=== PATIENT | female | born 1965 | race Caucasian/White ===

== ENCOUNTER 2017-06-15 16:37 | Inpatient (IN) | payer OTHER, MEDICARE ==
[~2017-06-15] VITALS: Ht 172.7 cm; Wt 115.4 kg
[~2017-06-15 16:37] MED LIST: ACET325 PO; ALBU90OI INH; ALLO100 PO; ALLO300 PO; AMITRIPTYLINE; AMOCLA875 PO; AMRIX; BELSOMRA20 MG PO; BUDE6HFA INH; BUME1 PO; BUME2 PO; CEFP500 PO; CEPH500 PO; CLON1 PO; COLCRYS0.6 MG PO; CRUTCH4 XX; CYCL10 PO; Carisoprodol350 MG PO; DULO60; DULO60 PO; Esgic Tablet1 EACH PO; FROVA; GABA300 PO; Hydrocodone Bt1 EACH PO; LEVFLO500 PO; LEVO2 PO; LYRICA; Lyrica150 MG PO; MELO7.5 PO; MELOXICAM; METF500 PO; METFORMIN; METH10 PO; METO2.5 PO; METO5 PO; MORP30ER PO; NODOLOR CAPSUL1 EACH PO; NOVOLOG MIX SC; OPANA ER15 MG PO; OXYACE5T PO; OXYC5; OXYC5 PO; OXYMORPHONE; OXYMORPHONE HCL30 MG PO; POTCHL20ER PO; PRED10; PRED10 PO; PREG150 PO; PRIM250 PO; PRIM50 PO; Percocet 5-3251 EACH PO; RIZATRIPTAN10 M1 PO; RXCLIN PO; SPIR25 PO; SULTRIDS PO; TIZANIDINE HCL4 MG PO; TOPIRAMATE; TORSE20 PO; TRAM50 PO; ZALE5 PO; ZOLP10 PO; ZOLP12.5 PO; Zanaflex4 M1 PO; Zanaflex4 MG PO; midrin
[2017-06-15 17:08] LABS: Source, Urine Clean Catch
[2017-06-15 17:12] LABS: BASOPHILS ABSOLUTE AUTO 0.05 K/mm3 (0.00-0.23); BASOPHILS PERCENT AUTO 0 % (0-2); Bilirubin, Urine Neg (Neg); Blood, Urine Neg (Neg); EOSINOPHILS ABSOLUTE AUTO 0.01 K/mm3 (0.00-0.68); EOSINOPHILS PERCENT AUTO 0 % (0-6); Glucose Qualitative, Urine 4+ (Neg); Hemoglobin 13.7 g/dL (11.5-16.0); IMMATURE GRAN PERCENT AUTO 1 % (0-1); Ketones, Urine Neg (Neg); LYMPHOCYTES ABSOLUTE AUTO 2.09 K/mm3 (0.84-5.20); LYMPHOCYTES PERCENT AUTO 13 % (21-46); Leukocyte Esterase, Urine Neg (Neg); MONOCYTES ABSOLUTE AUTO 0.67 K/mm3 (0.16-1.47); MONOCYTES PERCENT AUTO 4 % (4-13); Mean Corpuscular HGB 29.6 pg (26.0-34.0); Mean Corpuscular HGB Conc 33.4 g/dL (31.5-36.5); Mean Corpuscular Volume 89 fL (80-100); Mean Platelet Volume 9.9 fL (9.1-12.4); NEUTROPHILS ABSOLUTE AUTO 13.12 K/mm3 (1.96-9.15); NEUTROPHILS PERCENT AUTO 82 % (41-73); Nitrite, Urine Neg (Neg); Platelet Count 427 K/mm3 (150-400); Protein, Urine 3+ (Neg); RDW Coefficient Variation 13.2 % (11.7-14.2); RDW Standard Deviation 42.7 fL (35.1-46.3); Red Blood Cell Count 4.63 M/mm3 (3.80-5.20); Urobilinogen, Urine NORM (Normal); White Blood Cell Count 16.04 K/mm3 (4.00-11.30)
[2017-06-15 17:20] LABS: Appearance, Urine Clear (Clear); Color, Urine Yellow (P-Yellow)
[2017-06-15 17:22] LABS: Bacteria Few /hpf; Red Blood Cells, Urine 0-2 /hpf (0-2); Squamous Epithelial Cells Few /hpf (Few); White Blood Cells, Urine 0-2 /hpf (0-5)
[2017-06-15 17:29] LABS: Alanine Aminotransfer (ALT/SGP 18 U/L (12-78); Albumin, Blood 4.1 g/dL (3.4-5.0); Albumin/Globulin Ratio 1.1 (0.8-1.8); Alk Phos 71 U/L (50-136); Anion Gap 11 mmol/L (6-16); Aspartate Aminotrans (AST/SGOT 14 U/L (12-37); Bilirubin, Total 0.4 mg/dL (0.1-1.0); Blood Urea Nitrogen 14 mg/dL (8-24); Bun/Creatinine Ratio 24.1 (12.0-20.0); CO2, Blood 27 mmol/L (21-32); Calcium, Blood 9.6 mg/dL (8.5-10.1); Chloride, Blood 94 mmol/L (98-108); Creatinine, Blood 0.58 mg/dL (0.40-1.00); Globulin, Blood 3.9 g/dL (2.2-4.0); Glomerular Filtration Rate >60 (60-); Glucose, Blood 253 mg/dL (70-99); Potassium, Blood 3.7 mmol/L (3.5-5.5); Sodium, Blood 132 mmol/L (136-145)
[2017-06-16 04:08] LABS: BASOPHILS ABSOLUTE AUTO 0.03 K/mm3 (0.00-0.23); BASOPHILS PERCENT AUTO 0 % (0-2); EOSINOPHILS ABSOLUTE AUTO 0.14 K/mm3 (0.00-0.68); EOSINOPHILS PERCENT AUTO 1 % (0-6); Hematocrit 35.8 % (33.0-51.0); IMMATURE GRAN ABSOLUTE AUTO 0.05 K/mm3 (0.00-0.10); IMMATURE GRAN PERCENT AUTO 0 % (0-1); LYMPHOCYTES PERCENT AUTO 30 % (21-46); MONOCYTES PERCENT AUTO 8 % (4-13); Mean Corpuscular HGB 29.6 pg (26.0-34.0); Mean Corpuscular HGB Conc 33.5 g/dL (31.5-36.5); Mean Corpuscular Volume 88 fL (80-100); Mean Platelet Volume 9.9 fL (9.1-12.4); NEUTROPHILS ABSOLUTE AUTO 7.25 K/mm3 (1.96-9.15); NEUTROPHILS PERCENT AUTO 60 % (41-73); Platelet Count 352 K/mm3 (150-400); RDW Coefficient Variation 13.2 % (11.7-14.2); RDW Standard Deviation 42.1 fL (35.1-46.3); Red Blood Cell Count 4.06 M/mm3 (3.80-5.20); White Blood Cell Count 12.17 K/mm3 (4.00-11.30)
[2017-06-16 04:25] LABS: Anion Gap 6 mmol/L (6-16); Blood Urea Nitrogen 13 mg/dL (8-24); CO2, Blood 30 mmol/L (21-32); Calcium, Blood 8.9 mg/dL (8.5-10.1); Chloride, Blood 97 mmol/L (98-108); Cholesterol 202 mg/dL (50-200); Creatinine, Blood 0.59 mg/dL (0.40-1.00); Glomerular Filtration Rate >60 (60-); Glucose, Blood 160 mg/dL (70-99); Potassium, Blood 3.4 mmol/L (3.5-5.5); Sodium, Blood 133 mmol/L (136-145); Triglycerides 486 mg/dL (30-160)
[2017-06-16 10:34] LABS: Alanine Aminotransfer (ALT/SGP 17 U/L (12-78); Albumin, Blood 3.5 g/dL (3.4-5.0); Alk Phos 55 U/L (50-136); Aspartate Aminotrans (AST/SGOT 14 U/L (12-37); Bilirubin, Total 0.3 mg/dL (0.1-1.0); Globulin, Blood 3.4 g/dL (2.2-4.0); Total Protein, Blood 6.9 g/dL (6.4-8.2)
[2017-06-18 05:32] LABS: Anion Gap 8 mmol/L (6-16); Blood Urea Nitrogen 8 mg/dL (8-24); Bun/Creatinine Ratio 14.5 (12.0-20.0); CO2, Blood 25 mmol/L (21-32); Calcium, Blood 9.2 mg/dL (8.5-10.1); Chloride, Blood 100 mmol/L (98-108); Creatinine, Blood 0.55 mg/dL (0.40-1.00); Glomerular Filtration Rate >60 (60-); Glucose, Blood 240 mg/dL (70-99); Potassium, Blood 3.5 mmol/L (3.5-5.5); Sodium, Blood 133 mmol/L (136-145)
== END 2017-06-18 09:28 | disposition home or self-care (01) | DRG 440 ==
LOC: ER 16:37 → MEDS 16:38
PROVIDERS: Family Medicine; Internal Medicine
DX: K85.90 Acute pancreatitis without necrosis or infection, unspecified (principal); Z79.4 Long term (current) use of insulin; G89.29 Other chronic pain; M10.9 Gout, unspecified; E86.0 Dehydration; M79.7 Fibromyalgia; E11.40 Type 2 diabetes mellitus with diabetic neuropathy, unspecified; Z68.38 Body mass index [BMI] 38.0-38.9, adult; E66.01 Morbid (severe) obesity due to excess calories; R51 Headache; R16.0 Hepatomegaly, not elsewhere classified; K80.20 Calculus of gallbladder without cholecystitis without obstruction
CPT/HCPCS: 36415; 76705; 80048; 80053; 81001; 82465; 82947; 83690; 84478; 85025; 94640; 94760; 96374; 96375; 96376; 99285; C9113; J2405; J3010; J7042; J7120

== ENCOUNTER 2017-06-28 22:08 | Inpatient (IN) | payer OTHER, MEDICARE ==
[~2017-06-28] VITALS: Ht 172.7 cm; Wt 108.0 kg
[~2017-06-28 22:08] MED LIST changes: -METF500 PO; +METF500C PO
[2017-06-28 23:04] LABS: BASOPHILS ABSOLUTE AUTO 0.07 K/mm3 (0.00-0.23); BASOPHILS PERCENT AUTO 0 % (0-2); EOSINOPHILS ABSOLUTE AUTO 0.13 K/mm3 (0.00-0.68); EOSINOPHILS PERCENT AUTO 1 % (0-6); Hematocrit 36.9 % (33.0-51.0); Hemoglobin 12.1 g/dL (11.5-16.0); IMMATURE GRAN PERCENT AUTO 1 % (0-1); LYMPHOCYTES ABSOLUTE AUTO 2.42 K/mm3 (0.84-5.20); LYMPHOCYTES PERCENT AUTO 14 % (21-46); MONOCYTES ABSOLUTE AUTO 1.21 K/mm3 (0.16-1.47); MONOCYTES PERCENT AUTO 7 % (4-13); Mean Corpuscular HGB 29.1 pg (26.0-34.0); Mean Corpuscular HGB Conc 32.8 g/dL (31.5-36.5); Mean Corpuscular Volume 89 fL (80-100); Mean Platelet Volume 10.2 fL (9.1-12.4); NEUTROPHILS ABSOLUTE AUTO 13.69 K/mm3 (1.96-9.15); NEUTROPHILS PERCENT AUTO 78 % (41-73); Platelet Count 419 K/mm3 (150-400); RDW Coefficient Variation 12.7 % (11.7-14.2); RDW Standard Deviation 40.9 fL (35.1-46.3); Red Blood Cell Count 4.16 M/mm3 (3.80-5.20); White Blood Cell Count 17.62 K/mm3 (4.00-11.30)
[2017-06-28 23:25] LABS: Alanine Aminotransfer (ALT/SGP 14 U/L (12-78); Albumin, Blood 3.2 g/dL (3.4-5.0); Albumin/Globulin Ratio 0.7 (0.8-1.8); Alk Phos 70 U/L (50-136); Anion Gap 10 mmol/L (6-16); Aspartate Aminotrans (AST/SGOT 15 U/L (12-37); Bilirubin, Total 0.3 mg/dL (0.1-1.0); Blood Urea Nitrogen 7 mg/dL (8-24); CO2, Blood 28 mmol/L (21-32); Calcium, Blood 9.4 mg/dL (8.5-10.1); Chloride, Blood 97 mmol/L (98-108); Creatinine, Blood 0.63 mg/dL (0.40-1.00); Globulin, Blood 4.9 g/dL (2.2-4.0); Glomerular Filtration Rate >60 (60-); Glucose, Blood 222 mg/dL (70-99); Sodium, Blood 135 mmol/L (136-145); Total Protein, Blood 8.1 g/dL (6.4-8.2); Troponin I <0.015 ng/mL (0.000-0.040)
[2017-06-28] MEDS ORDERED: ZOLP5 PO (23:39)
[2017-06-29] MEDS ORDERED: Trilipix135 MG PO (01:14)
[2017-06-29] MEDS ORDERED: RIZATRIPTAN10 M1 PO (01:17)
[2017-06-29] MEDS ORDERED: ALLO300 PO (04:20)
[2017-06-29 05:00] LABS: BASOPHILS ABSOLUTE AUTO 0.04 K/mm3 (0.00-0.23); BASOPHILS PERCENT AUTO 0 % (0-2); EOSINOPHILS ABSOLUTE AUTO 0.04 K/mm3 (0.00-0.68); EOSINOPHILS PERCENT AUTO 0 % (0-6); Hematocrit 33.6 % (33.0-51.0); Hemoglobin 11.1 g/dL (11.5-16.0); IMMATURE GRAN ABSOLUTE AUTO 0.07 K/mm3 (0.00-0.10); IMMATURE GRAN PERCENT AUTO 0 % (0-1); LYMPHOCYTES PERCENT AUTO 12 % (21-46); MONOCYTES ABSOLUTE AUTO 1.23 K/mm3 (0.16-1.47); MONOCYTES PERCENT AUTO 8 % (4-13); Mean Corpuscular HGB 29.4 pg (26.0-34.0); Mean Corpuscular Volume 89 fL (80-100); Mean Platelet Volume 10.1 fL (9.1-12.4); NEUTROPHILS ABSOLUTE AUTO 12.44 K/mm3 (1.96-9.15); NEUTROPHILS PERCENT AUTO 79 % (41-73); Platelet Count 392 K/mm3 (150-400); RDW Coefficient Variation 12.6 % (11.7-14.2); RDW Standard Deviation 41.1 fL (35.1-46.3); Red Blood Cell Count 3.77 M/mm3 (3.80-5.20); White Blood Cell Count 15.72 K/mm3 (4.00-11.30)
[2017-06-30 05:09] LABS: BASOPHILS ABSOLUTE AUTO 0.03 K/mm3 (0.00-0.23); BASOPHILS PERCENT AUTO 0 % (0-2); EOSINOPHILS ABSOLUTE AUTO 0.01 K/mm3 (0.00-0.68); EOSINOPHILS PERCENT AUTO 0 % (0-6); Hematocrit 31.6 % (33.0-51.0); Hemoglobin 10.4 g/dL (11.5-16.0); IMMATURE GRAN ABSOLUTE AUTO 0.09 K/mm3 (0.00-0.10); IMMATURE GRAN PERCENT AUTO 1 % (0-1); LYMPHOCYTES ABSOLUTE AUTO 1.67 K/mm3 (0.84-5.20); LYMPHOCYTES PERCENT AUTO 12 % (21-46); MONOCYTES ABSOLUTE AUTO 0.87 K/mm3 (0.16-1.47); MONOCYTES PERCENT AUTO 6 % (4-13); Mean Corpuscular HGB 28.9 pg (26.0-34.0); Mean Corpuscular HGB Conc 32.9 g/dL (31.5-36.5); Mean Corpuscular Volume 88 fL (80-100); Mean Platelet Volume 10.4 fL (9.1-12.4); NEUTROPHILS ABSOLUTE AUTO 10.98 K/mm3 (1.96-9.15); NEUTROPHILS PERCENT AUTO 80 % (41-73); Platelet Count 377 K/mm3 (150-400); RDW Coefficient Variation 12.6 % (11.7-14.2); RDW Standard Deviation 40.6 fL (35.1-46.3); White Blood Cell Count 13.65 K/mm3 (4.00-11.30)
[2017-06-30 05:26] LABS: Anion Gap 12 mmol/L (6-16); Blood Urea Nitrogen 10 mg/dL (8-24); Bun/Creatinine Ratio 16.5 (12.0-20.0); CO2, Blood 25 mmol/L (21-32); Chloride, Blood 97 mmol/L (98-108); Creatinine, Blood 0.61 mg/dL (0.40-1.00); Glomerular Filtration Rate >60 (60-); Glucose, Blood 228 mg/dL (70-99); Potassium, Blood 3.8 mmol/L (3.5-5.5); Sodium, Blood 134 mmol/L (136-145)
[2017-07-01 05:19] LABS: BASOPHILS ABSOLUTE AUTO 0.04 K/mm3 (0.00-0.23); BASOPHILS PERCENT AUTO 0 % (0-2); EOSINOPHILS ABSOLUTE AUTO 0.05 K/mm3 (0.00-0.68); EOSINOPHILS PERCENT AUTO 0 % (0-6); Hematocrit 32.6 % (33.0-51.0); Hemoglobin 10.7 g/dL (11.5-16.0); IMMATURE GRAN ABSOLUTE AUTO 0.07 K/mm3 (0.00-0.10); IMMATURE GRAN PERCENT AUTO 1 % (0-1); LYMPHOCYTES ABSOLUTE AUTO 2.41 K/mm3 (0.84-5.20); LYMPHOCYTES PERCENT AUTO 21 % (21-46); MONOCYTES ABSOLUTE AUTO 0.92 K/mm3 (0.16-1.47); MONOCYTES PERCENT AUTO 8 % (4-13); Mean Corpuscular HGB Conc 32.8 g/dL (31.5-36.5); Mean Corpuscular Volume 88 fL (80-100); Mean Platelet Volume 9.9 fL (9.1-12.4); NEUTROPHILS ABSOLUTE AUTO 8.11 K/mm3 (1.96-9.15); NEUTROPHILS PERCENT AUTO 70 % (41-73); Platelet Count 377 K/mm3 (150-400); RDW Coefficient Variation 12.6 % (11.7-14.2); Red Blood Cell Count 3.69 M/mm3 (3.80-5.20)
[2017-07-01 05:38] LABS: Anion Gap 9 mmol/L (6-16); Blood Urea Nitrogen 14 mg/dL (8-24); Bun/Creatinine Ratio 25.3 (12.0-20.0); CO2, Blood 28 mmol/L (21-32); Calcium, Blood 9.4 mg/dL (8.5-10.1); Chloride, Blood 98 mmol/L (98-108); Creatinine, Blood 0.55 mg/dL (0.40-1.00); Glomerular Filtration Rate >60 (60-); Glucose, Blood 220 mg/dL (70-99); Potassium, Blood 3.9 mmol/L (3.5-5.5); Sodium, Blood 135 mmol/L (136-145)
[2017-07-02 05:50] LABS: Anion Gap 10 mmol/L (6-16); Blood Urea Nitrogen 16 mg/dL (8-24); Bun/Creatinine Ratio 26.8 (12.0-20.0); CO2, Blood 30 mmol/L (21-32); Calcium, Blood 9.6 mg/dL (8.5-10.1); Chloride, Blood 93 mmol/L (98-108); Glomerular Filtration Rate >60 (60-); Glucose, Blood 223 mg/dL (70-99); Potassium, Blood 4.1 mmol/L (3.5-5.5); Sodium, Blood 133 mmol/L (136-145)
[2017-07-02] MEDS ORDERED: CODEINE-GUAIFE120 ML PO (12:47)
[2017-07-02] MEDS ORDERED: NOVOLOG 70/30 SC (12:57)
[2017-07-02] MEDS ORDERED: CEFP500 PO (12:58)
[2017-07-02] MEDS ORDERED: INSU100I6 SC (12:58)
[2017-07-02] MEDS ORDERED: PRED10 PO (13:00)
[2017-07-02] MEDS ORDERED: Metformin HCl500 MG PO (13:07)
== END 2017-07-02 14:00 | disposition home or self-care (01) | DRG 871 ==
LOC: ER 22:08 → MEDS 06-29 00:08
PROVIDERS: Emergency Medicine; Family Medicine; Hospitalist
DX: A41.9 Sepsis, unspecified organism (principal); J96.01 Acute respiratory failure with hypoxia; K85.10 Biliary acute pancreatitis without necrosis or infection; J84.9 Interstitial pulmonary disease, unspecified; J44.9 Chronic obstructive pulmonary disease, unspecified; E11.9 Type 2 diabetes mellitus without complications; F17.210 Nicotine dependence, cigarettes, uncomplicated; E66.9 Obesity, unspecified
CPT/HCPCS: 36415; 71046; 80048; 80053; 82947; 83605; 83690; 83880; 84484; 85025; 87040; 87070; 87205; 87493; 93005; 93010; 94640; 94760; 94761; 96365; 96375; 99285; J1956; J2405; J2543; J2930; J3010; J7030

== ENCOUNTER 2017-08-21 06:39 | Day surgery (SDC) | payer OTHER, MEDICARE ==
[~2017-08-21] VITALS: Ht 170.2 cm; Wt 116.1 kg
[~2017-08-21 06:39] MED LIST changes: +CODEINE-GUAIFE120 ML PO; +INSU100I6 SC; +Metformin HCl500 MG PO; +NOVOLOG 70/30 SC; +Trilipix135 MG PO; +VICOPROFEN PO; +ZOLP5 PO
== END 2017-08-21 23:16 | disposition home or self-care (01) ==
LOC: ORSCMMR 06:39 → ORD 08:00 → ORSCMMR 23:16
PROVIDERS: Surgery
PROC: 0FT44ZZ Resection of Gallbladder, Percutaneous Endoscopic Approach (ICD-10-PCS; principal; 2017-08-21 08:00)
PROC: BF031ZZ Plain Radiography of Gallbladder and Bile Ducts using Low Osmolar Contrast (ICD-10-PCS; principal; 2017-08-21 08:00)
DX: K80.20 Calculus of gallbladder without cholecystitis without obstruction (principal); I10 Essential (primary) hypertension; E11.9 Type 2 diabetes mellitus without complications; J45.909 Unspecified asthma, uncomplicated; E66.01 Morbid (severe) obesity due to excess calories; Z68.41 Body mass index [BMI] 40.0-44.9, adult; F17.210 Nicotine dependence, cigarettes, uncomplicated; Z79.4 Long term (current) use of insulin; Z79.899 Other long term (current) drug therapy
CPT/HCPCS: 74300; 82947; 88304; C1729; J0690; J1100; J1885; J2001; J2250; J2405; J2710; J3010; J7030; J7120

== ENCOUNTER 2018-03-06 22:22 | Observation (INO) | payer OTHER, MEDICARE ==
[~2018-03-06] VITALS: Ht 172.7 cm; Wt 94.4 kg
[~2018-03-06 22:22] MED LIST changes: +HUMULIN 70100 UNIT/2 SC; +HYDPAM25 PO; +HYDR-86 PO; -INSU100I6 SC; +PRED20 PO
[2018-03-06 23:01] LABS: BASOPHILS ABSOLUTE AUTO 0.03 K/mm3 (0.00-0.23); BASOPHILS PERCENT AUTO 0 % (0-2); EOSINOPHILS ABSOLUTE AUTO 0.07 K/mm3 (0.00-0.68); EOSINOPHILS PERCENT AUTO 1 % (0-6); Hematocrit 38.7 % (33.0-51.0); Hemoglobin 12.6 g/dL (11.5-16.0); IMMATURE GRAN ABSOLUTE AUTO 0.07 K/mm3 (0.00-0.10); IMMATURE GRAN PERCENT AUTO 1 % (0-1); LYMPHOCYTES ABSOLUTE AUTO 2.89 K/mm3 (0.84-5.20); LYMPHOCYTES PERCENT AUTO 21 % (21-46); MONOCYTES ABSOLUTE AUTO 0.63 K/mm3 (0.16-1.47); MONOCYTES PERCENT AUTO 5 % (4-13); Mean Corpuscular HGB 29.6 pg (26.0-34.0); Mean Corpuscular HGB Conc 32.6 g/dL (31.5-36.5); Mean Corpuscular Volume 91 fL (80-100); Mean Platelet Volume 9.4 fL (9.1-12.4); NEUTROPHILS ABSOLUTE AUTO 9.85 K/mm3 (1.96-9.15); NEUTROPHILS PERCENT AUTO 73 % (41-73); Platelet Count 576 K/mm3 (150-400); RDW Coefficient Variation 14.4 % (11.7-14.2); RDW Standard Deviation 48.2 fL (35.1-46.3); Red Blood Cell Count 4.25 M/mm3 (3.80-5.20); White Blood Cell Count 13.54 K/mm3 (4.00-11.30)
[2018-03-06 23:25] LABS: Free Thyroxine 1.28 ng/dL (0.70-1.60); Troponin I <0.015 ng/mL (0.000-0.040)
[2018-03-06 23:29] LABS: Alanine Aminotransfer (ALT/SGP 51 U/L (12-78); Albumin/Globulin Ratio 0.8 (0.8-1.8); Alk Phos 149 U/L (50-136); Anion Gap 7 mmol/L (6-16); Aspartate Aminotrans (AST/SGOT 44 U/L (12-37); Bilirubin, Total 0.4 mg/dL (0.1-1.0); Blood Urea Nitrogen 13 mg/dL (8-24); Bun/Creatinine Ratio 23.2 (12.0-20.0); CO2, Blood 29 mmol/L (21-32); Calcium, Blood 8.5 mg/dL (8.5-10.1); Chloride, Blood 101 mmol/L (98-108); Creatinine, Blood 0.56 mg/dL (0.40-1.00); Glomerular Filtration Rate >60 (60-); Glucose, Blood 41 mg/dL (70-99); Potassium, Blood 3.8 mmol/L (3.5-5.5); Sodium, Blood 137 mmol/L (136-145); Thyroid Stimulating Hormone 0.602 uIU/mL (0.360-4.800); Triiodothyronine, Free 2.42 pg/mL (2.18-3.98)
[2018-03-07 01:12] LABS: Ethanol (Alcohol), Blood, Med <3 mg/dL; Salicylate 3.8 mg/dL (2.8-20.0)
[2018-03-07 01:18] LABS: Acetaminophen, Random <2.0 ug/mL (10.0-30.0)
--- NOTE | 2018-03-07 06:37 | NUR ---
PCU NOC SHIFT SUMMARY PATIENT ARRIVED FROM ER VERY LETHARGIC - TO ONLY AROUSABLE TO PAINFUL STIMULI. PATIENT TRANSFERED TO UNIT BED VIA SLIDER SHEET AND NURSES X4. GANG DRILL OPERATOR APPLIED AND VSS OBTAINED. PATIENT WILL FOLLOW SOME DIRECTIONS AND USES ONE WORD SENTENCES TO COMMUNICATE. PATIENT IS NONSENSICLE. L/S CLEAR. RESP E/U ON ROOM AIR. PATIENT REMAINED LETHARGIC T/O SHIFT AND SLEPT T/O SHIFT THUS FAR. CBGS DONE Q2 HOUR. NO ACUTE CHANGES NOTED T/O SHIFT.
--- NOTE | 2018-03-07 08:00 | NUR ---
PT UNRESPONSIVE EXCEPT TO PAIN. ANSWERS GARBLED AND INCOMPREHENSIBLE. HUSB AT BEDSIDE. STATES IS NOT HER NORM. THEY JUST MOVED TO HEW HOUSE. FOUND HER UNRESPONSIVE LAST [place]CHELL AT 6PM. CBG 40'S, O2 50'S PER HIS STATEMENT. HE CALLED AMBULANCE. GAVE HER HONEY UNDER TONGUE. SHE COMBATIVE AT THAT TIME. CONFUSED AND NOT FOLLOWING INSTRUCT. NOT HER BASELINE. RUNS HOUSEHOLD WELL. TAKES OWN MEDS. ETC. H/R REG, NO MURMER NOTED. PER TELE: NSR AT 79. LUNGS CLEAR, RESP EASY, UNLABORED. ON R.A. BT X4 LAST BM LST NITE IN ER. INCONT. BOWEL AND BLADDER. IN ATTENDS. BED CONFINED AT THIS TIMEM. BED IN LOW POSITIOIN,C ALL LITE IN REACH, BED ALARM ON FOR SAFETY
--- NOTE | 2018-03-07 11:00 | NUR ---
1100 TALKED TO PT. SHE AWAKE. ABLE TO TELL ME FIRST NAME. AGE 52. HUSB NAME FRANCOIS. NOT SURE WHERE IS. UNABLE TO TELL ME HER HOME LOCATION. REORIENTED. TOOK SIPS WATER. DID WELL. NOTIFIED.
--- NOTE | 2018-03-07 13:35 | NUR ---
CBG TRENDING UP. DR BROOKS. OKAY CHANGE ACHS AND MED S/S , HUMALOG QUICKPEN. CONTINUE IV D-5 1/2 NS
--- NOTE | 2018-03-07 15:30 | NUR ---
PT C/O ABD PAIN, CALLED DR BROOKS. NO NEW ORDERS. WARM PACKS OKAY PER
--- NOTE | 2018-03-07 18:46 | NUR ---
1300PT ABLE TO TELL ME HER NAME, ADAL NAME, FRANCOIS,. STATES 3 CHILDREN, GAVE ME TWO NAMES. ADAL LATER CONFIRMED WRONG. ABLE TO TELL ME SHE IN [place], NOT SURE WHERE WAS. REORIENTED. SHE IMPROVED. ABLE TO MOVE ARMS. TOUCH NOSE WITH FINGER TIPS WITH EFFORT. BOTH ARMS. ABLETO MOVE BOTH FEET AND LIFT EACH INDEPENDANTLY IN BED. SAMPLE CHECKER EQUAL AND WEAK. BED IN LOW POSITION,,CA LL LITE IN REACH, BED ALARM ON FOR SAFETY
--- NOTE | 2018-03-07 18:49 | NUR ---
1630 PT BED ALARM ON/ WENT TO ROOM. SHE SITTING ON EDGE OF BED, WITH LOOSE STOOL ON BED AND IN ATTENDS AND ALLOVER LOWER EXT. SHE UPSET. HAS HAD PAIN IN ABD. FEELS BETTER NOW IN ABD. CLEANED BED AND PT WITH AIDE ASST. PT AMBULATED 1 ASST TO BSC. HAD FURTHER BM AND URINE. BATHED PT . PT AMBULATED BACK TO BED, 1 ASST. MUCH CALMER AT THIS TIME. ABLE TO TELL NAME, HUSB, HER AGE, SHE STATES SHE IS SORRY FOR MESS. EXPLAINED IS OKAY AND EXPECTED WHEN SICK. NO OTHER CONCERNS AT THIS TIME. BED IN LOW POSITION,, CALL LITE IN REACH, BED ALARM ON FOR SAFETY.
--- NOTE | 2018-03-07 18:53 | NUR ---
PT HAS IMPROVED FROM THIS AM . NOTIFIED OF CURRENT CONDITION, ALERT ORIENTED TO SELF AND FAM. AGE. UNSURE OF CHILDREN NAMES. CITY. DID HAVE BM THIS AFT. AMBULATED TO BSC. DID WELL 1 ASST. STATES GETS DIARRHEA REGULARLY SINCE GALL BLADDER OUT THIS SPRING. SOME ACCIDENTS, INCONT. SOME NOT. VARIES., BUT ALWAYS VERY SOFT STOOLS. NO OTHER CONCERNA AT THIS TIME. BED IN LOW POSITION, CALL LITE IN REACH, BED ALARM ON FOR SAFETY
--- NOTE | 2018-03-07 19:13 | NUR ---
1800 CALLED. STATES CAN MOVE TO NS AT 75 IF EATING MEAL. IF NOT KEEP AT D/5 IS. SHE ATE ONLY FEW BITES. LESS THAN 10% FOR DINNER. SO AM KEEPING AT D/5. PT SLOWLY IMPROVING. HUSB AT BEDSIDE AT 1800. BED IN LOW POSITION,,CALL LTIE IN REACH. BED ALARM ON FOR SAFETY
[2018-03-08 04:32] LABS: BASOPHILS ABSOLUTE AUTO 0.05 K/mm3 (0.00-0.23); BASOPHILS PERCENT AUTO 0 % (0-2); EOSINOPHILS ABSOLUTE AUTO 0.13 K/mm3 (0.00-0.68); EOSINOPHILS PERCENT AUTO 1 % (0-6); Hemoglobin 12.7 g/dL (11.5-16.0); IMMATURE GRAN ABSOLUTE AUTO 0.06 K/mm3 (0.00-0.10); IMMATURE GRAN PERCENT AUTO 0 % (0-1); LYMPHOCYTES ABSOLUTE AUTO 3.39 K/mm3 (0.84-5.20); LYMPHOCYTES PERCENT AUTO 24 % (21-46); MONOCYTES ABSOLUTE AUTO 0.94 K/mm3 (0.16-1.47); MONOCYTES PERCENT AUTO 7 % (4-13); Mean Corpuscular HGB 28.7 pg (26.0-34.0); Mean Corpuscular HGB Conc 32.6 g/dL (31.5-36.5); NEUTROPHILS ABSOLUTE AUTO 9.56 K/mm3 (1.96-9.15); NEUTROPHILS PERCENT AUTO 68 % (41-73); Platelet Count 582 K/mm3 (150-400); RDW Coefficient Variation 14.4 % (11.7-14.2); RDW Standard Deviation 46.4 fL (35.1-46.3); Red Blood Cell Count 4.42 M/mm3 (3.80-5.20); White Blood Cell Count 14.13 K/mm3 (4.00-11.30)
[2018-03-08 04:33] LABS: Mean Corpuscular Volume 88 fL (80-100)
[2018-03-08 04:47] LABS: Alanine Aminotransfer (ALT/SGP 41 U/L (12-78); Albumin, Blood 2.8 g/dL (3.4-5.0); Albumin/Globulin Ratio 0.7 (0.8-1.8); Alk Phos 144 U/L (50-136); Anion Gap 8 mmol/L (6-16); Aspartate Aminotrans (AST/SGOT 29 U/L (12-37); Bilirubin, Total 0.6 mg/dL (0.1-1.0); Blood Urea Nitrogen 11 mg/dL (8-24); Bun/Creatinine Ratio 18.3 (12.0-20.0); CO2, Blood 26 mmol/L (21-32); Calcium, Blood 8.4 mg/dL (8.5-10.1); Chloride, Blood 103 mmol/L (98-108); Globulin, Blood 3.9 g/dL (2.2-4.0); Glomerular Filtration Rate >60 (60-); Glucose, Blood 222 mg/dL (70-99); Potassium, Blood 3.6 mmol/L (3.5-5.5); Sodium, Blood 137 mmol/L (136-145); Total Protein, Blood 6.7 g/dL (6.4-8.2)
--- NOTE | 2018-03-08 06:13 | NUR ---
PCU NOC SHIFT SUMMARY IT IS NOTED THAT PATIENT IS MILDLY MORE AWAKE AND PARTICIPANT IN SELF CARE THIS SHIFT WHEN COMPAIR WITH LAST NOC (ADMIT). PATIENT USES 1/2 WORKD SENTENCES TO AID WITH GETTING NEEDS MET. RESP E/U ON ROOM AIR; LS CLEAR. NO ACUTE DISTRESS NOTED; NO CADIAC EVENTS NOTE PER MARINA DRY DOCK MANAGER T/O SHIFFT. FLUIDS RUNNING PER EMAR GTT. PATIENT REMAINS TO ASK CHILD LIKE, MOANING OUT T/O SHIFT. PATIENT WILL STAND AND TRANSFER TO BEDSIDE COMMODE YET REMAINS INCONTINENT OF STOOL AND URINE. PATIENT HAS HAD MULTIPLE STOOLS THIS SHIFT THAT ARE LIQUID; NEED STOOL SAMPLE, AND URINE. PATIENT PULLED IV'S DURING SHIFT - NEW ONE STARTED. WILL C ONTINUE TO MONITOR AND i CAN REPORT OF TO DAY SHIFT RN.
--- NOTE | 2018-03-08 08:00 | NUR ---
PT SOMEWHAT ALERT TO SELF, FAMILY. EVENT. NO PAIN AT THIS TIME. IS SLOW TO RESPOND. WITHDRAWN. FOLLOWS SOME INSTRUCTIONS. QUIET. EYES NOT EQUAL, RT, [address] CAMPOS NOTIFIED IN DR DICTATION. H/R RG, NO MURMER NOTED. PER TELE: NSR AT 85. LUNGS CLEAR RESP EASY, UNLABORED. ON R/A. BT X4 LAST BM THIS AM. INCONT. VOIDS PER ATTEND AND 1 ASST TO BSC. NOTIFIED SHE HAS BEEN INCONT. ALSO OF LOOSE STOOL.. STATES MAY BE RELATED TO GALL BLADDER REMOVAL LAST YR. BED IN LOW POSITION, CALL LITE IN REACH, BED ALARM ON FOR SAFETY CAME TO ROOM. STATES SHE 50-75% OF BASELINE AT THIS TIME.
--- NOTE | 2018-03-08 12:09 | NUR ---
REPORT CALLED TO JIMBO MCCONNELL. MOVING TO MED NO TELE. RM [id number]
--- NOTE | 2018-03-08 18:21 | NUR ---
SHIFT SUMMARY MICHELLE (CONOR) ARRIVED FROM PCU EARLY THIS AFTERNOON. PT COMPLAINS OF SOME ABDOMINAL PAIN AROUND HER [facility]. CALLED DR CAMPOS AND INFORMED HIM. ALSO PT HAS HAD 2 LOOSE BM THIS SHIFT, STOOL SAMPLE SENT OFF. HIGH CBGS TREATED WITH INSULI. SBA TO BR. ADA DIET. ORIENTED X3. UNSURE OF YEAR OR HOW SHE GOT HERE (DESPITE HAVING BEEN TOLD BEFORE). PER SHE IS 50-75% BACK TO NORMAL. VERY CHILDLIKE AFFECT. WCTM
[2018-03-08 20:54] LABS: Adenovirus F 40/41 Not Detected (NOT DETECT); Astrovirus Not Detected (NOT DETECT); Campylobacter Sp Not Detected (NOT DETECT); Cryptosporidium Not Detected (NOT DETECT); Cyclospora Cayetanensis Not Detected (NOT DETECT); E. Coli O157 Not Detected (NOT DETECT); Entamoeba Histolytica Not Detected (NOT DETECT); Enteroaggregative E. coli-EAEC Not Detected (NOT DETECT); Enteropathogenic E. coli-EPEC Detected (NOT DETECT); Enterotoxigenic E. coli-ETEC Not Detected (NOT DETECT); Giardia Lamblia Not Detected (NOT DETECT); Norovirus GI/GII Not Detected (NOT DETECT); Plesiomonas Shigelloides Not Detected (NOT DETECT); Rotavirus A Not Detected (NOT DETECT); Salmonella Sp Not Detected (NOT DETECT); Sapovirus Not Detected (NOT DETECT); Shiga Toxin-prod E. coli-STEC Not Detected (NOT DETECT); Shigella/Enteroin E. coli-EIEC Not Detected (NOT DETECT); Vibrio Cholerae Not Detected (NOT DETECT); Vibrio Sp Not Detected (NOT DETECT); Yersinia Enterocolitica Not Detected (NOT DETECT)
[2018-03-09 05:25] LABS: BASOPHILS ABSOLUTE AUTO 0.06 K/mm3 (0.00-0.23); BASOPHILS PERCENT AUTO 1 % (0-2); EOSINOPHILS ABSOLUTE AUTO 0.22 K/mm3 (0.00-0.68); EOSINOPHILS PERCENT AUTO 2 % (0-6); Hematocrit 37.4 % (33.0-51.0); IMMATURE GRAN ABSOLUTE AUTO 0.02 K/mm3 (0.00-0.10); IMMATURE GRAN PERCENT AUTO 0 % (0-1); LYMPHOCYTES ABSOLUTE AUTO 3.25 K/mm3 (0.84-5.20); LYMPHOCYTES PERCENT AUTO 30 % (21-46); MONOCYTES ABSOLUTE AUTO 0.81 K/mm3 (0.16-1.47); MONOCYTES PERCENT AUTO 8 % (4-13); Mean Corpuscular HGB Conc 32.1 g/dL (31.5-36.5); Mean Corpuscular Volume 90 fL (80-100); Mean Platelet Volume 10.1 fL (9.1-12.4); NEUTROPHILS ABSOLUTE AUTO 6.41 K/mm3 (1.96-9.15); NEUTROPHILS PERCENT AUTO 60 % (41-73); Platelet Count 472 K/mm3 (150-400); RDW Coefficient Variation 14.1 % (11.7-14.2); Red Blood Cell Count 4.14 M/mm3 (3.80-5.20); White Blood Cell Count 10.77 K/mm3 (4.00-11.30)
--- NOTE | 2018-03-09 05:36 | NUR ---
SHIFT SUMMARY PT PREFERS TO BE CALLED MICHELLE. PT ADMITED FOR MORPHINE OVERDOSE. FULL CODE. ADA DIET. NEURO CHECKS Q 2 HRS. CBG AT AC AND HS. LOVENOX FOR DVT PROPHYLAXIS. 1 PERSON ASSIST TO INDEPENDENT TO THE BR. MEDS WHOLE WITH WATER. 20 G IV TO L FA. THE PT REPORTED HAVING CHRONIC DIARRHEA SINCE HER GALLBLADDER REMOVAL IN AUGUST. HOWEVER, THE PTS STOOL SAMPLE CAME BACK POSITIVE FOR C-DIFF AND SUBSEQUENT THE PT IS ON CONTACT ISOLATION. THE PT PRESENTED TO THE ED DUE TO AMS AND UNRESPONSIVE. PER , THE PT WAS IN HER [facility]UAL [facility] IN THE MORNING BEFORE LEFT THE HOUSE AND WHEN RETURNED THE PT WAS FOUND ON THE FLOOR AND UNRESPONSIVE. THE PT IS TYPE 2 DIABETIC AND IS DEPENDENT ON INSULIN FOR CONTROL OF BLOOD SUGARS. THE PTS REPORTED HAVING SEEN HIS TAKE INSULIN PRIOR TO HIM LEAVING THE HOUSE. THE PT ALSO TAKES OPIODS FOR CHRONIC PAIN. THE PT WAS GIVEN D5 AND NARCAN UPON ARRIVAL TO THE ED. THE REPORTS THAT THE PT HAS BEEN HAPPY AND EVEN THOUGH THE PT HAS A HISTORY OF DEPRESSION THE DOES NOT BELIEVE THAT THIS WAS A SUICIDE ATTEMPT. PER REPORT, THE PT APPEARED TO HAVE SIGNIFICANT IMPROVEMENT IN MENTATION AFTER NARCAN. THE PT AND WERE EDUCATED REGARDING C-DIFF AND THE PROBABLE TREATMENT. THE PT DID STATED THAT SHE WANTED TO GO HOME TODAY BUT IT IS UNCLEAR IF THAT WILL BE POSSIBLE SINCE THE DIAGNOSIS OF C-DIFF AND SUBSEQUENT NECESSARY TREATMENT. THE PT APPEARS TO BE SLEEPING COMFORTABLY AT THIS TIME WITH NO APPARENT SIGNS OF ACUTE DISTRESS. ABLE TO MAKE NEEDS KNOWN AND CALL LIGHT IN REACH.
[2018-03-09] MEDS ORDERED: POLY500 PO (12:09)
[2018-03-09] MEDS ORDERED: SACC250C PO (12:11)
[2018-03-09] MEDS ORDERED: VANC250 PO (12:11)
--- NOTE | 2018-03-09 12:57 | NUR ---
PT DISCHARGED AT 1255 WITH TO TRANSPORT. PT AOX4 NO DISTRESS NOTED. PT HAPPY TO BE GOING HOME. PT HAD MEDICATION FAXED TO [facility] ON [address]. TO TRANSPORT OUT IN WHEEL CHAIR DID NOT WANT ESCORT. IV REMOVED PRIOR TO DISCHARGE. ALL PAPERS SIGNED AND REVIEWED WELL HOW TO CLEAN THEIR HOUSE PROPERLY. PT INSTRUCTED TO TAKE ALL ANTIBOTICS GIVEN.
== END 2018-03-09 12:56 | disposition home or self-care (01) ==
LOC: ER 22:22 → PCU 22:23 → ER 22:23 → PCU 22:24 → MEDS 03-08 12:08
PROVIDERS: Emergency Medicine; Family Medicine; Hospitalist; ADMIT Hospitalist
DX: G92 Toxic encephalopathy (principal); T40.605A Adverse effect of unspecified narcotics, initial encounter; T40.601A Poisoning by unspecified narcotics, accidental (unintentional), initial encounter; E11.649 Type 2 diabetes mellitus with hypoglycemia without coma; D72.829 Elevated white blood cell count, unspecified; F11.20 Opioid dependence, uncomplicated; G89.29 Other chronic pain; F32.9 Major depressive disorder, single episode, unspecified; A04.72 Enterocolitis due to Clostridium difficile, not specified as recurrent; E11.40 Type 2 diabetes mellitus with diabetic neuropathy, unspecified; E66.9 Obesity, unspecified; M79.7 Fibromyalgia; F17.210 Nicotine dependence, cigarettes, uncomplicated; Z79.4 Long term (current) use of insulin; Z79.899 Other long term (current) drug therapy; Z68.35 Body mass index [BMI] 35.0-35.9, adult
CPT/HCPCS: 36415; 70450; 71045; 80053; 82947; 83880; 84145; 84439; 84443; 84481; 84484; 85025; 87507; 93005; 93010; 94640; 94760; 96361; 96372; 96374; 96375; 96376; 99285-25; G0378; G0480; J1650; J2310; J7030; J7042

== ENCOUNTER 2018-05-17 15:28 | Emergency (ER) | payer OTHER, MEDICARE ==
[~2018-05-17] VITALS: Ht 172.7 cm; Wt 90.7 kg
[~2018-05-17 15:28] MED LIST changes: +POLY500 PO; +SACC250C PO; +VANC250 PO
[2018-05-17] MEDS ORDERED: ZOLP5 PO (15:43)
[2018-05-17] MEDS ORDERED: HYDROCODONE-IB1 EACH PO (15:46)
[2018-05-17] MEDS ORDERED: Crutch1 EACH MISC (16:31)
== END 2018-05-17 16:36 | disposition home or self-care (01) ==
LOC: ER 15:28
DX: S93.402A Sprain of unspecified ligament of left ankle, initial encounter (principal); E11.42 Type 2 diabetes mellitus with diabetic polyneuropathy; F32.9 Major depressive disorder, single episode, unspecified; G89.29 Other chronic pain; F17.210 Nicotine dependence, cigarettes, uncomplicated; Z79.84 Long term (current) use of oral hypoglycemic drugs; Z79.899 Other long term (current) drug therapy; G43.909 Migraine, unspecified, not intractable, without status migrainosus; W06.XXXA Fall from bed, initial encounter
CPT/HCPCS: 29515; 73610; 99283-25; A9270-GY

== ENCOUNTER 2020-07-17 16:10 | Inpatient (IN) | payer MEDICARE ==
[~2020-07-17] VITALS: Ht 167.6 cm; Wt 99.7 kg
[~2020-07-17 16:10] MED LIST changes: +Crutch1 EACH MISC; -HUMULIN 70100 UNIT/2 SC; +HUMULIN 70100 UNIT/4 SC; +HYDROCODONE-IBUPROFE
[2020-07-17 16:37] LABS: PCO2 Arterial 52.7 mmHg (35-45); PO2 Arterial 63.5 mmHg (80-100); pH Blood Arterial 7.31 (7.35-7.45)
[2020-07-17 16:38] LABS: BASOPHILS ABSOLUTE AUTO 0.08 K/mm3 (0.00-0.23); BASOPHILS PERCENT AUTO 1 % (0-2); EOSINOPHILS ABSOLUTE AUTO 0.16 K/mm3 (0.00-0.68); EOSINOPHILS PERCENT AUTO 1 % (0-6); Hemoglobin 11.9 g/dL (11.5-16.0); IMMATURE GRAN ABSOLUTE AUTO 0.04 K/mm3 (0.00-0.10); IMMATURE GRAN PERCENT AUTO 0 % (0-1); LYMPHOCYTES ABSOLUTE AUTO 2.34 K/mm3 (0.84-5.20); LYMPHOCYTES PERCENT AUTO 20 % (21-46); MONOCYTES ABSOLUTE AUTO 0.76 K/mm3 (0.16-1.47); MONOCYTES PERCENT AUTO 6 % (4-13); Mean Corpuscular HGB 29.8 pg (26.0-34.0); Mean Corpuscular HGB Conc 31.3 g/dL (31.5-36.5); Mean Corpuscular Volume 95 fL (80-100); Mean Platelet Volume 10.8 fL (9.1-12.4); NEUTROPHILS ABSOLUTE AUTO 8.62 K/mm3 (1.96-9.15); NEUTROPHILS PERCENT AUTO 72 % (41-73); Platelet Count 207 K/mm3 (150-400); RDW Coefficient Variation 13.9 % (11.7-14.2); Red Blood Cell Count 3.99 M/mm3 (3.80-5.20)
[2020-07-17 16:51] LABS: Alanine Aminotransfer (ALT/SGP 52 U/L (12-78); Albumin, Blood 3.3 g/dL (3.4-5.0); Alk Phos 111 U/L (50-136); Anion Gap 9 mmol/L (6-16); Aspartate Aminotrans (AST/SGOT 46 U/L (12-37); Bilirubin, Total 0.3 mg/dL (0.1-1.0); Blood Urea Nitrogen 7 mg/dL (8-24); Bun/Creatinine Ratio 10.8 (12.0-20.0); CO2, Blood 27 mmol/L (21-32); CPK Creatine Kinase 309 U/L (26-193); Chloride, Blood 107 mmol/L (98-108); Creatinine, Blood 0.65 mg/dL (0.40-1.00); Ethanol (Alcohol), Blood, Med <3 mg/dL; Globulin, Blood 3.4 g/dL (2.2-4.0); Glomerular Filtration Rate >60 (60-); Glucose, Blood 72 mg/dL (70-99); Potassium, Blood 3.1 mmol/L (3.5-5.5); Salicylate 2.3 mg/dL (2.8-20.0); Sodium, Blood 143 mmol/L (136-145); Total Protein, Blood 6.7 g/dL (6.4-8.2)
[2020-07-17 17:10] LABS: Acetaminophen, Random <2.0 ug/mL (10.0-30.0)
[2020-07-17 17:29] LABS: Creatine Kinase MB 8.4 ng/mL (0.0-3.6); Creatine Kinase MB Index 2.7 (0.0-4.0)
[2020-07-17 17:55] LABS: Source, Urine Catheter
[2020-07-17 17:59] LABS: Appearance, Urine Hazy (Clear); Bilirubin, Urine Neg (Neg); Blood, Urine 3+ (Neg); Color, Urine Yellow (P-Yellow); Glucose Qualitative, Urine 1+ (Neg); Ketones, Urine Neg (Neg); Leukocyte Esterase, Urine 1+ (Neg); Nitrite, Urine Neg (Neg); Protein, Urine 4+ (Neg); Specific Gravity, Urine 1.015 (1.003-1.022); Urobilinogen, Urine NORM (Normal)
[2020-07-17 18:07] LABS: Bacteria Many /hpf; Red Blood Cells, Urine 0-2 /hpf (0-2); Squamous Epithelial Cells Few /hpf (Few)
[2020-07-17 18:08] LABS: U Amphetamine Screen Not Detected; U Barbituate Screen DETECTED; U Benzodiazapine Screen Not Detected; U Buprenorphine Screen DETECTED; U Cocaine Screen Not Detected; U Methadone Screen Not Detected; U Methamphetamine Screen Not Detected; U Opiates Screen DETECTED
[2020-07-17 18:09] LABS: U Cannabinoids Screen Not Detected; U Oxycodone Screen Not Detected; U Phencyclidine Screen Not Detected; U Propoxyphene Screen Not Detected
[2020-07-17 20:49] LABS: Base Excess Venous 4.3 mmol/L; Bicarbonate Venous 26.2 mmol/L (24.0-30.0); PO2 Venous 42.6 mmHg (38-42); pH Blood Venous 7.29 (7.34-7.37)
--- NOTE | 2020-07-17 21:30 | NUR ---
PT ARRIVAL: PT ARRIVES AN ADMIT FROM THE ED. PER REPORT, PT WAS FOUND UNRESPONSIVE, LAYING ON THE BATHROOM FLOOR BY HER SPOUSE. HOME GLUCOMETER WAS 20 & SPOUSE ATTEMPTED TO GIVE HONEY & SUGAR W/OUT SUCCESS. UPON EMS ARRIVAL CBG READ "LOW" & GIVEN 2 AMPS OF D50 & INTUBATED IN THE FIELD. PT WAS BRADYCARDIC IN THE 30s-40s. NO KNOWN CARDIAC Hx. EDEN WAS CONSULTED & SAW HER IN THE ER. NO CARDIOLOGY ORDERS. GIVEN NARCAN W/NO CHANGE IN LOC. UPON ARRIVAL TO ICU, PT IS THRASHING IN BED & COUGHING VERY HARD AGAINST THE ETT. AGITATED & UNABLE TO FOLLOW COMMANDS. PROPOFOL TITRATED UP. HR 50s-60s. SBP 160s. SEE ADMISSION ASSESSMENT FOR FULL ASSESSMENT. WILL CALL BALDEMAR SHORTLY TO DISCUSS SEDATION ALTERNATIVES.
--- NOTE | 2020-07-17 22:30 | NUR ---
UPDATE: NOTIFIED / INSULIN SAFETY THIS RN CALLED THE PT's SPOUSE & UPDATED HIM ON PT's PROGRESS SINCE ARRIVING IN ICU. SPOUSE EXPLAINS THE PT IS ADAMANT SHE STAY ON A STRICT SCHEDULE W/ HER DIABETIC MEDs. SHE WILL TAKE HER INSULIN @ THE SAME TIME EVERY MORNING & EVENING, MANY TIMES W/OUT TAKING HER CBG OR HAVING EATEN ANY FOOD. SHE HAS HAD SEVERAL EPISODES OF DEC LOC AFTER TAKING HER INSULIN & EMS CALLED. HOWEVER, SHE HAS NEVER BEEN HOSPITALIZED FOR THIS. PT's SPOUSE GIVEN THOROUGH EDUCATION ON THE IMPORTANCE OF STAYING VIGILANT OF CBGs WHEN RECEIVING INSULIN & THE DANGERS OF LOW BLOOD SUGAR. PT VERBALIZES UNDERSTANDING & STS HE HAS HAD MANY CONVERSATIONS W/ THE PT ABOUT THIS, EVEN ASKING HER TO SEE A DIFFERENT PROVIDER FOR HER UNCONTROLLED DM & RECURRENT INSULIN PROBLEMS, HOWEVER PT IS VERY RESISTENT & CONTINUES TO BE NONCOMPLIANT. WILL CONTINUE TO REINFORCE INSULIN SAFETY W/ PT & FAMILY APPROPRIATE.
--- NOTE | 2020-07-18 03:30 | NUR ---
UPDATE: SEDATION TITRATION PT BECOMING INCREASINGLY AGITATED & UNABLE TO TOLERATE ETT W/OUT COUGHING & GAGGING AGAINST THE TUBE, @ TIMES PT DESATS TO THE LOW 80s. PT INITIALLY ABLE TO TOLERATE INCREASES IN PROPOFOL GTT & PRN FENTANYL FOR AGITATION, HOWEVER PT BECOMING MORE HYPOTENSIVE DESPITE TITRATING PROPOFOL DOWN. PRECEDEX STARTED ORDERED. WILL TITRATE HR TOLERATES.
[2020-07-18 03:48] LABS: BASOPHILS ABSOLUTE AUTO 0.08 K/mm3 (0.00-0.23); BASOPHILS PERCENT AUTO 1 % (0-2); EOSINOPHILS ABSOLUTE AUTO 0.23 K/mm3 (0.00-0.68); EOSINOPHILS PERCENT AUTO 2 % (0-6); Hematocrit 35.8 % (33.0-51.0); Hemoglobin 11.8 g/dL (11.5-16.0); IMMATURE GRAN ABSOLUTE AUTO 0.04 K/mm3 (0.00-0.10); IMMATURE GRAN PERCENT AUTO 0 % (0-1); LYMPHOCYTES ABSOLUTE AUTO 3.25 K/mm3 (0.84-5.20); LYMPHOCYTES PERCENT AUTO 26 % (21-46); MONOCYTES ABSOLUTE AUTO 0.84 K/mm3 (0.16-1.47); MONOCYTES PERCENT AUTO 7 % (4-13); Mean Corpuscular HGB 30.2 pg (26.0-34.0); Mean Corpuscular Volume 92 fL (80-100); Mean Platelet Volume 10.9 fL (9.1-12.4); NEUTROPHILS ABSOLUTE AUTO 8.26 K/mm3 (1.96-9.15); NEUTROPHILS PERCENT AUTO 65 % (41-73); Platelet Count 230 K/mm3 (150-400); RDW Coefficient Variation 14.2 % (11.7-14.2); RDW Standard Deviation 47.9 fL (35.1-46.3); Red Blood Cell Count 3.91 M/mm3 (3.80-5.20)
[2020-07-18 04:03] LABS: Anion Gap 4 mmol/L (6-16); Blood Urea Nitrogen 5 mg/dL (8-24); Bun/Creatinine Ratio 9.6 (12.0-20.0); CO2, Blood 29 mmol/L (21-32); Chloride, Blood 104 mmol/L (98-108); Creatinine, Blood 0.52 mg/dL (0.40-1.00); Glomerular Filtration Rate >60 (60-); Glucose, Blood 140 mg/dL (70-99); Magnesium, Blood 1.6 mg/dL (1.6-2.4); Sodium, Blood 137 mmol/L (136-145)
--- NOTE | 2020-07-18 05:10 | NUR ---
UPDATE: HYPOTENSION & GI CONTENTS CHANGE PT's HYPOTENSION CONTINUES TO BE UNRESPONSIVE TO DECREASES IN PROPOFOL. MAPs NOW 50s-60. ADDITIONALLY, GI CONTENTS APPEAR TO HAVE CHANGED FROM BILIOUS & BROWN TO MAROON & COFFEE-GROUND. HR NOW 48-55 W/ PRECEDEX @ 0.4mcg/kg/hr. BALDEMAR CALLED & UPDATED ON PT STATUS. ORDERS GIVEN TO STOP PRECEDEX & PROPOFOL & GIVE 1mg EPINEPHRINE IF HR IS <45, GIVE 1L BOLUS OF NS. BLOOD CULTURES, VBG, & LACTIC TO BE DRAWN STAT. PER BALDEMAR, F/U ONCE BOLUS IS COMPLETE. WASHER BLANKET AWARE.
[2020-07-18 05:37] LABS: Base Excess Venous 5.6 mmol/L; PCO2 Venous 40.4 mmHg (38-42); PO2 Venous 85.2 mmHg (38-42); pH Blood Venous 7.47 (7.34-7.37)
--- NOTE | 2020-07-18 06:33 | NUR ---
SHIFT SUMMARY: PT REMAINS INTUBATED. VENT: AC 14/450, 5/25%. NO SEDATION PER BALDEMAR, SEE PREVIOUS NOTATIONS FOR PROGRESSION OF CARE. EASILY AWAKES WHEN STAFF ENTERS ROOM. ABLE TO OPEN EYES, TRACK ABOUT THE ROOM, & FOLLOWS COMMANDS. PT MOUTHING WORDS & POINTING @ ETT. ROLLS EYES & NODS HEAD "YES" WHEN TOLD SHE WILL BE EXTUBATED TODAY. @ TIMES PT COUGHS EXTREMELY HARD AGAINST ETT, DESATS TO LOW 90s, BUT RECOVERS WELL. BP RESPONDING WELL TO BOLUS, MAPs NOW 70s-86. HR UNCHANGED, low 50s. ZOLL PADS REMAIN ON PT FOR PRUDENCE. GI CONTENTS NOW APPEARS BILIOUS. PLAN FOR EXTUBATION THIS MORNING & ECHO LATER THIS MORNING. WILL CONTINUE TO MONITOR UNTIL REPORT OFF TO ONCOMING RN.
--- NOTE | 2020-07-18 07:51 | NUR ---
ASSUMED CARE BEDSIDE REPORT FROM MARY CHOI AT 0700. PT INTUBATED. AC 14/450/5/25%. CHANGED TO SPONT AT APPROX 0740. TOLERATING WELL 5/5 25%. TIDAL VOLUMES 600'S, RATE 20'S. PT ALERT. NODS HEAD TO YES/NO QUESTIONS. RESTRAINT REMOVED AND PT ABLE TO WRITE c CLIPBOARD AND PIN. EXPLAINED ADMISSION AND EVENTS LEADING UP TO. PT APPEARS TO UNDERSTAND. CALM AND COOPERATIVE. MAEW. LUNGS CLEAR. O2 SATS >97%. COUGH/GAG/SWALLOW REFLEX PRESENT. ABD SOFT, ROUND, NON TENDER. BT X 4. OGT TO LIS, YELLOW/BROWN EMESIS OUT. HR 50-60'S c OCCASIONAL RUNS OF VTACH. BP STABLE. D5 1/2NS INFUSING AT 200 ML/HR, CHEMBG 144 THIS AM. WILL CONTINUE q1 HR CHECKS. PLAN FOR ECHO AND EKG TODAY. WILL NOTIFY POISON CONTROL. WILL CONTINUE TO MONITOR.
--- NOTE | 2020-07-18 09:48 | NUR ---
EXTUBATION DR TORRES ROUNDED. PT REMAINED ON SPONT 5/5 25%. TOLERATING WELL. CALM AND COOPERATIVE, FOLLOWING COMMANDS. SMALL AMOUNT OF YELLOW SECRETIONS THROUGH ETT. EXTUBATED AT 0944. RESTRAINTS REMOVED. PT ON RA, O2 SATS >64%. ABLE TO USE CALL LIGHT AND MAKE NEEDS KNOWN. WILL CONTINUE TO MONITOR.
[2020-07-18] MEDS ORDERED: BUME1 PO (16:16)
[2020-07-18] MEDS ORDERED: BUPRENORPHINE HC2 MG SL (16:18)
[2020-07-18] MEDS ORDERED: BUPRENORPHINE HC2 MG TD (16:18)
[2020-07-18] MEDS ORDERED: CEFU500T30 PO (16:20)
[2020-07-18] MEDS ORDERED: Diflucan100 MG PO (16:21)
--- NOTE | 2020-07-18 17:29 | NUR ---
SHIFT SUMMARY PT EXTUBATED THIS SHIFT, SEE NOTE. PT ON RA, LUNGS COARSE. NON PRODUCTIVE COUGH. FLUTTER VALVE AT BEDSIDE. VSS. BEDSIDE SWALLOW COMPLETE. DIET ADVANCED TO ADA. TOLERATING WELL. D5 1/2NS D/C'D. CHEMBG 150-190'S. SS HELD. VSS. WILL CONTINUE TO MONITOR UNTIL REPORT TO ONCOMING NURSE.
--- NOTE | 2020-07-18 19:30 | NUR ---
ASSUMING PT CARE: PT SITTING UP IN BED, WATCHING TV. APPROPRIATELY INTERACTIVE W/ STAFF & COOPERATIVE. PT ABLE TO RECALL THE EVENTS WHICH BROUGHT HER TO THE HOSPITAL THOUGH SHE IS UNABLE TO RECALL THIS MORNING BEFORE SHE WAS EXTUBATED. VS STABLE. DENIES ANY COMPLAINTS. WILL CONTINUE TO MONITOR & REPORT APPROPRIATE.
--- NOTE | 2020-07-18 20:30 | NUR ---
UPDATE: PT ASSISTED TO AMBULATE FROM BED TO TOILET, APPROX 6 FEET. NO TREMORS NOTED OR DIZZINESS REPORTED. ONCE SAT DOWN, PT DID HAVE AN INC HR FROM 70s-90s W/ SHORT EPISODE OF ECTOPY. BACK TO BED W/OUT INCIDENT. MILD DYSPNEA W/ EXERTION, PT RECOVERS WELL & RETURNS TO BASELINE QUICKLY.
[2020-07-19 03:41] LABS: BASOPHILS ABSOLUTE AUTO 0.06 K/mm3 (0.00-0.23); BASOPHILS PERCENT AUTO 1 % (0-2); EOSINOPHILS ABSOLUTE AUTO 0.19 K/mm3 (0.00-0.68); EOSINOPHILS PERCENT AUTO 2 % (0-6); Hemoglobin 12.7 g/dL (11.5-16.0); IMMATURE GRAN ABSOLUTE AUTO 0.03 K/mm3 (0.00-0.10); IMMATURE GRAN PERCENT AUTO 0 % (0-1); LYMPHOCYTES ABSOLUTE AUTO 2.95 K/mm3 (0.84-5.20); LYMPHOCYTES PERCENT AUTO 30 % (21-46); MONOCYTES ABSOLUTE AUTO 0.83 K/mm3 (0.16-1.47); MONOCYTES PERCENT AUTO 9 % (4-13); Mean Corpuscular HGB 30.1 pg (26.0-34.0); Mean Corpuscular HGB Conc 33.4 g/dL (31.5-36.5); Mean Corpuscular Volume 90 fL (80-100); Mean Platelet Volume 10.6 fL (9.1-12.4); NEUTROPHILS ABSOLUTE AUTO 5.74 K/mm3 (1.96-9.15); NEUTROPHILS PERCENT AUTO 59 % (41-73); Platelet Count 218 K/mm3 (150-400); RDW Coefficient Variation 14.3 % (11.7-14.2); RDW Standard Deviation 46.6 fL (35.1-46.3); Red Blood Cell Count 4.22 M/mm3 (3.80-5.20)
[2020-07-19 04:26] LABS: Anion Gap 3 mmol/L (6-16); Blood Urea Nitrogen 5 mg/dL (8-24); Bun/Creatinine Ratio 9.6 (12.0-20.0); CO2, Blood 30 mmol/L (21-32); Calcium, Blood 8.7 mg/dL (8.5-10.1); Chloride, Blood 106 mmol/L (98-108); Creatinine, Blood 0.52 mg/dL (0.40-1.00); Glomerular Filtration Rate >60 (60-); Glucose, Blood 41 mg/dL (70-99); Potassium, Blood 3.4 mmol/L (3.5-5.5); Sodium, Blood 139 mmol/L (136-145)
--- NOTE | 2020-07-19 05:40 | NUR ---
UPDATE: CBG PT FOUND TO HAVE A CBG OF 41 W/ AM LABS. PT IS DROWSY, HOWEVER PT WAS AWAKENED FROM SLEEP FOR ASSESSMENT. VS STABLE. PT DENIES ANY DIZZINESS, WEAKNESS, & IS ABLE TO FULLY PARTICIPATE IN ASSESSMENT. PT GIVEN ROAST BEEF SLICES & PROTEIN SHAKE. CBG NOW RESOLVED @ 96. PT CONTINUES TO BE ASYMPTOMATIC. DISCUSSED W/ RESOURCE CONSERVATIONIST. WILL CONTINUE TO MONITOR & REPORT APPROPRIATE.
--- NOTE | 2020-07-19 07:30 | NUR ---
ASSUMED CARE: PT RESTING QUIETLY IN BED AT THIS TIME. CBG STABLE FOR BREAKFAST. NSR ON TELE. NO ACUTE NEEDS OR CONCERNS AT PRESENT.
--- NOTE | 2020-07-19 13:18 | NUR ---
DISCHARGE: INFORMATION GIVEN ABOUT DISCHARGE TO PT AND INCLUDING DIFFERENCE BETWEEN SIMPLE AND COMPLEX CARBS AND SNACKS FOR HS COVERAGE. INSTRUCTED ON CHANGES FOR HS INSULIN AND TO KEEP A LOG UNTIL APPOINTMENT WITH DR MEI AND TO CALL FOR APPOINTMENT. IV DC'D WNL. ESCORTED OUT VIA WHEEL CHAIR BY HOSPITAL STAFF. A BAG OF BELONGINGS WAS LEFT BEHIND WITH CALL AND MESSAGE TO PT'S FOR DIPLOMA MEDICAL ASSISTANT
[2020-07-22 16:11] LABS: FREE INSULIN 9.6 uU/mL (.)
== END 2020-07-19 13:00 | disposition home or self-care (01) | DRG 917 ==
LOC: ER 16:10 → ERHOLD 18:40 → ICUE 18:40
PROVIDERS: Emergency Medicine; Internal Medicine Critical Care Medicine; Internal Medicine Pulmonary Disease; Nurse Practitioner Acute Care; ADMIT Internal Medicine
PROC: 0BH17EZ Insertion of Endotracheal Airway into Trachea, Via Natural or Artificial Opening (ICD-10-PCS; principal; 2020-07-17)
PROC: 5A1935Z Respiratory Ventilation, Less than 24 Consecutive Hours (ICD-10-PCS; 2020-07-17)
DX: T38.3X1A Poisoning by insulin and oral hypoglycemic [antidiabetic] drugs, accidental (unintentional), initial encounter (principal); E11.641 Type 2 diabetes mellitus with hypoglycemia with coma; J96.01 Acute respiratory failure with hypoxia; F11.20 Opioid dependence, uncomplicated; J98.11 Atelectasis; N39.0 Urinary tract infection, site not specified; E11.42 Type 2 diabetes mellitus with diabetic polyneuropathy; G43.909 Migraine, unspecified, not intractable, without status migrainosus; M79.7 Fibromyalgia; F17.210 Nicotine dependence, cigarettes, uncomplicated; F32.9 Major depressive disorder, single episode, unspecified; E11.22 Type 2 diabetes mellitus with diabetic chronic kidney disease; B96.89 Other specified bacterial agents as the cause of diseases classified elsewhere; J44.9 Chronic obstructive pulmonary disease, unspecified; E66.9 Obesity, unspecified; N18.9 Chronic kidney disease, unspecified; M10.9 Gout, unspecified; G89.29 Other chronic pain; Z98.890 Other specified postprocedural states; Z90.49 Acquired absence of other specified parts of digestive tract; Z79.899 Other long term (current) drug therapy; Z79.51 Long term (current) use of inhaled steroids; Z79.4 Long term (current) use of insulin; Z71.6 Tobacco abuse counseling
CPT/HCPCS: 31500; 36415; 36600; 51702; 70450; 71045; 71046; 74018; 80048; 80053; 81001; 82550; 82553; 82803; 82947; 83525; 83527; 83605; 83735; 84100; 84484; 85025; 87040; 87077; 87086; 87186; 93005; 93010; 93306; 94002; 94003; 94640; 96361-59; 96374-59; 99285-25; A9270; C9113; G0480; J1650; J1815; J2250; J2310; J2704; J3010; J3480; J7030; J7042

== ENCOUNTER 2021-04-26 11:33 | Inpatient (IN) | payer MEDICARE ==
[~2021-04-26] VITALS: Ht 172.7 cm; Wt 87.2 kg
[~2021-04-26 11:33] MED LIST changes: +BUPRENORPHINE HC2 MG SL; +BUPRENORPHINE HC2 MG TD; +CEFU500T30 PO; +DULCOLAX400 MG/5 M PO; +Diflucan100 MG PO; +HUMALOG KW100 UNIT/1 SC; +HUMULIN 70100 UNIT/3 SC; +HYDHCL25 PO; +INSULANI SC; +Imitrex100 MG PO; +LISI10 PO; +METF500 PO; +Norco 7.5-3251 EACH PO; +TIZA4 PO
[2021-04-26 11:59] LABS: PO2 Arterial 76.1 mmHg (80-100); pH Blood Arterial 7.41 (7.35-7.45)
[2021-04-26 12:45] LABS: Influenza A, PCR NEGATIVE (NEGATIVE); Influenza B, PCR NEGATIVE (NEGATIVE); SARS-Cov-2 (COVID-19) PCR, MMC NEGATIVE (NEGATIVE)
[2021-04-26 12:56] LABS: BASOPHILS ABSOLUTE AUTO 0.15 K/mm3 (0.00-0.23); BASOPHILS PERCENT AUTO 1 % (0-2); EOSINOPHILS ABSOLUTE AUTO 0.11 K/mm3 (0.00-0.68); EOSINOPHILS PERCENT AUTO 0 % (0-6); Hematocrit 38.3 % (33.0-51.0); Hemoglobin 13.2 g/dL (11.5-16.0); IMMATURE GRAN ABSOLUTE AUTO 0.38 K/mm3 (0.00-0.10); IMMATURE GRAN PERCENT AUTO 1 % (0-1); LYMPHOCYTES ABSOLUTE AUTO 3.61 K/mm3 (0.84-5.20); LYMPHOCYTES PERCENT AUTO 11 % (21-46); MONOCYTES ABSOLUTE AUTO 1.96 K/mm3 (0.16-1.47); MONOCYTES PERCENT AUTO 6 % (4-13); Mean Corpuscular HGB 29.9 pg (26.0-34.0); Mean Corpuscular HGB Conc 34.5 g/dL (31.5-36.5); Mean Corpuscular Volume 87 fL (80-100); Mean Platelet Volume 10.7 fL (9.1-12.4); NEUTROPHILS ABSOLUTE AUTO 25.92 K/mm3 (1.96-9.15); NEUTROPHILS PERCENT AUTO 81 % (41-73); Platelet Count 416 K/mm3 (150-400); RDW Coefficient Variation 13.2 % (11.7-14.2); RDW Standard Deviation 42.1 fL (35.1-46.3); Red Blood Cell Count 4.41 M/mm3 (3.80-5.20); White Blood Cell Count 32.13 K/mm3 (4.00-11.30)
[2021-04-26 13:22] LABS: Resp Syncytial Virus, PCR POSITIVE (NEGATIVE)
[2021-04-26 13:28] LABS: Alanine Aminotransfer (ALT/SGP 18 U/L (12-78); Albumin, Blood 2.4 g/dL (3.4-5.0); Albumin/Globulin Ratio 0.5 (0.8-1.8); Alk Phos 120 U/L (50-136); Anion Gap 5 mmol/L (6-16); Aspartate Aminotrans (AST/SGOT 14 U/L (12-37); Bilirubin, Total 0.5 mg/dL (0.1-1.0); Blood Urea Nitrogen 13 mg/dL (8-24); Bun/Creatinine Ratio 21.7 (12.0-20.0); CO2, Blood 31 mmol/L (21-32); Calcium, Blood 8.8 mg/dL (8.5-10.1); Chloride, Blood 99 mmol/L (98-108); Glomerular Filtration Rate >60 (60-); Glucose, Blood 259 mg/dL (70-99); Potassium, Blood 2.9 mmol/L (3.5-5.5); Sodium, Blood 135 mmol/L (136-145); Total Protein, Blood 7.4 g/dL (6.4-8.2)
[2021-04-26 14:50] LABS: Source, Urine Clean Catch
[2021-04-26 14:56] LABS: Appearance, Urine Hazy (Clear); Bilirubin, Urine Neg (Neg); Blood, Urine 2+ (Neg); Color, Urine Amber (P-Yellow); Glucose Qualitative, Urine Neg (Neg); Ketones, Urine Neg (Neg); Leukocyte Esterase, Urine Neg (Neg); Nitrite, Urine Pos (Neg); Protein, Urine 3+ (Neg); Specific Gravity, Urine 1.025 (1.003-1.022); Urobilinogen, Urine 1+ (Normal)
[2021-04-26 15:04] LABS: Bacteria Many /hpf; Squamous Epithelial Cells Many /hpf (Few)
[2021-04-26 15:07] LABS: Transitional Epithelial Cells Few /hpf (0-Rare)
[2021-04-26 15:08] LABS: Renal Epithelial Rare /hpf (0-Rare); Renal Tubular Epi Cast 0-2 /lpf (0)
[2021-04-26] MEDS ORDERED: TRESIBA FL100 UNIT/2 SC (16:53)
--- NOTE | 2021-04-26 19:12 | NUR ---
SHIFT SUMMARY: PATIENT ADMIT TO PCU 09. ALERT AND ORIENTED. INTERMITTENT CONFUSION. NEUROPATHY. PERRLA. UP TO BS WITH 1 PERSON ASSIST. WEAKNESS NOTED. SOB WITH MOVEMENT. ON 3L NASAL CANNULA SATING MID 90'S. INCREASE 02 DEMAND WITH MOVEMENT. LUNGS SOUNDING COARSE AND CRACKLY. PRODUCTIVE MOIST COUGH. TELE SHOWING SINUS RHYTHM WITH HR 80-90'S. STABLE BP. DENIES CHEST PAIN/PRESSURE. DENIES ABDOMINAL PAIN/NAUSEA. TOLERATING PO DIET. SKIN OVERALL PALE. NO WOUNDS NOTED. IV POTASSIUM INFUSED. ACHS BLOOD SUGARS. ISOLATION FOR RSV. MEDICATION REC DONE VIA MEDICATION LIST FROM [facility]. PCP CHACORTA MEI CALLED AND ABLE TO CONFIRM PATIENT MEDICATIONS OVER PHONE. DR. HAGEN CALLED TO ORDER HOME MEDS. SEE MED LIST FAXED FROM [facility] IN CHART. CALL LIGHT IN REACH. IN TO SEE PATIENT. REPORTED OFF TO LUCY CHOI.
--- NOTE | 2021-04-26 20:05 | NUR ---
ASSUMED CARE OF PATIENT AT APPROXIMATELY 1905 FROM DEVONTE Reilly RN. PATIENT ALERT AND ORIENTED X4; FORGETFUL; MUMBLES AT TIMES. PATIENT REPORTS DISCOMFORT IN BACK "IT'S LIKE A BUMP" POINTING TO HER MID RIGHT BACK; NO BUMP NOTED AND PATIENT REFUSING HEATING PAD OR PO MEDICATION. PATIENT DENIES NUMBNESS, TINGLING, DIZZINESS AND NAUSEA. PIV 2X S/L. ST ON TELE; OXYGEN SATURATION ABOVE 90% ON 4-5LPM; PRODUCTIVE COUGH NOTED; DESATS TO 86% WHEN COUGHING; DR. HAGEN NOTIFIED AND PRN COUGH MEDICATIONS RECIEVED. SBA TO BSC.
--- NOTE | 2021-04-27 02:52 | NUR ---
PATIENT OXYGEN NEEDS INCREASING THROUGHOUT NIGHT. STARTED AT 4 LPM AND UP TO 10LPM VIA HIGH FLOW NC. PATIENT DESATS WITH COUGHING AND HAD REMOVED O2 DURING SLEEP AT ONE POINT AND REPORTED FELT DIZZY AND OXYGEN SATURATION IN THE HIGH 70'S ON ROOM AIR.
[2021-04-27 04:44] LABS: Hematocrit 40.2 % (33.0-51.0); Hemoglobin 13.3 g/dL (11.5-16.0); Mean Corpuscular HGB 29.4 pg (26.0-34.0); Mean Corpuscular HGB Conc 33.1 g/dL (31.5-36.5); Mean Corpuscular Volume 89 fL (80-100); Platelet Count 393 K/mm3 (150-400); RDW Coefficient Variation 13.2 % (11.7-14.2); RDW Standard Deviation 43.1 fL (35.1-46.3); Red Blood Cell Count 4.53 M/mm3 (3.80-5.20); White Blood Cell Count 24.32 K/mm3 (4.00-11.30)
[2021-04-27 05:01] LABS: Anion Gap 6 mmol/L (6-16); Blood Urea Nitrogen 13 mg/dL (8-24); Bun/Creatinine Ratio 27.4 (12.0-20.0); CO2, Blood 27 mmol/L (21-32); Calcium, Blood 8.8 mg/dL (8.5-10.1); Chloride, Blood 104 mmol/L (98-108); Creatinine, Blood 0.48 mg/dL (0.40-1.00); Glomerular Filtration Rate >60 (60-); Glucose, Blood 204 mg/dL (70-99); Potassium, Blood 3.7 mmol/L (3.5-5.5); Sodium, Blood 137 mmol/L (136-145)
--- NOTE | 2021-04-27 06:13 | NUR ---
PATIENT CURRENTLY ON 8 LPM VIA NC; NO OTHER ACUTE CHANGE TO REPORT.
--- NOTE | 2021-04-27 09:30 | NUR ---
AM NOTE: ALERT AND ORIENTED X4. PERRLA. NEUROPATHY. ONE PERSON ASSIST TO BSC. ON 8L HIGH FLOW NASAL CANNULA SATING MID 90'S. DESATS WHEN UP TO BSC. PRODUCTIVE LOOSE COUGH. LUNGS SOUNDING COARSE WITH CRACKLES. SPUTUM SAMPLE COLLECTED THIS AM. COUGH MEDS PRN. TELE SHOWING SINUS RHYTHM WITH PVCS. HR IN 80-90'S. DENIES CHEST PAIN/PRESSURE. BP STABLE. DENIES ABDOMINAL PAIN/NAUSEA. USING BSC TO VOID. URINE DARK REID. IV ANTIBIOTICS THIS AM. IV'S SALINE LOCKED AT THIS TIME. ACHS BLOOD SUGARS. CALL LIGHT IN REACH. WILL CONTINUE TO MONITOR.
--- NOTE | 2021-04-27 19:11 | NUR ---
SHIFT SUMMARY: NO ACUTE CHANGES. SEE PREVIOUS NOTE. REMAINS ON 6-8L NASAL CANNULA. COUGH CONTINUES. MINIMAL OUTPUT. TELE REMAINS UNCHANGED. BP STABLE. DENIES PAIN. VITAL SIGNS STABLE. IN TO VISIT. TOLERATING PO DIET. DRINKING WATER. DENIES NEEDS. BED BATH GIVEN THIS SHIFT. REPORTED OFF TO ONCOMING RN.
--- NOTE | 2021-04-27 21:33 | NUR ---
AASSUMED CARE OF PATIENT AT APPROXIMATELY 1910 FROM DEVONTE Reilly RN. PATIENT ALERT AND ORIENTED X4; FORGETFUL; MUMBLES AT TIMES; DROWSY AT TIMES. PATIENT DENIES PAIN, NUMBNESS, TINGLING, DIZZINESS AND NAUSEA. PIV 2X S/L. ST ON TELE; OXYGEN SATURATION ABOVE 90% ON 7LPM; PRODUCTIVE COUGH NOTED; DESATS TO WHEN COUGHING. SBA TO BSC BUT PATIENT REQUESTED TO WALK INTO BATHROOM; OXYGEN SATURATION DROPPED TO 83% AT ONE POINT BUT RECOVERED QUICKLY. PATIENT ASKED FOR SHOWER AND WHEN REMINDED SHE HAD BED BATH TODAY, SHE STATES THAT DIDNT HAPPEN. ARNAV BERKOWITZ FOUND IN BED BUT PATIENT REPORTS SHE IS NOT SURE WHERE IT CAME FROM. .
[2021-04-28 04:55] LABS: BASOPHILS PERCENT AUTO 1 % (0-2); EOSINOPHILS ABSOLUTE AUTO 0.28 K/mm3 (0.00-0.68); EOSINOPHILS PERCENT AUTO 2 % (0-6); Hematocrit 35.3 % (33.0-51.0); Hemoglobin 11.3 g/dL (11.5-16.0); Mean Corpuscular HGB 29.4 pg (26.0-34.0); Mean Corpuscular Volume 92 fL (80-100); Mean Platelet Volume 10.6 fL (9.1-12.4); Platelet Count 368 K/mm3 (150-400); RDW Coefficient Variation 13.3 % (11.7-14.2); RDW Standard Deviation 45.7 fL (35.1-46.3); Red Blood Cell Count 3.85 M/mm3 (3.80-5.20); White Blood Cell Count 17.78 K/mm3 (4.00-11.30)
[2021-04-28 05:00] LABS: IMMATURE GRAN ABSOLUTE AUTO 0.15 K/mm3 (0.00-0.10); IMMATURE GRAN PERCENT AUTO 1 % (0-1); LYMPHOCYTES ABSOLUTE AUTO 6.54 K/mm3 (0.84-5.20); LYMPHOCYTES PERCENT AUTO 37 % (21-46); MONOCYTES ABSOLUTE AUTO 1.25 K/mm3 (0.16-1.47); MONOCYTES PERCENT AUTO 7 % (4-13); NEUTROPHILS ABSOLUTE AUTO 9.46 K/mm3 (1.96-9.15); NEUTROPHILS PERCENT AUTO 53 % (41-73)
[2021-04-28 05:20] LABS: Anion Gap 5 mmol/L (6-16); Blood Urea Nitrogen 23 mg/dL (8-24); Bun/Creatinine Ratio 43.6 (12.0-20.0); CO2, Blood 29 mmol/L (21-32); Calcium, Blood 8.9 mg/dL (8.5-10.1); Chloride, Blood 104 mmol/L (98-108); Creatinine, Blood 0.53 mg/dL (0.40-1.00); Glomerular Filtration Rate >60 (60-); Glucose, Blood 111 mg/dL (70-99); Potassium, Blood 3.6 mmol/L (3.5-5.5); Sodium, Blood 138 mmol/L (136-145)
--- NOTE | 2021-04-28 05:57 | NUR ---
PATIENT SLEPT ABOUT NINE HOURS LAST NIGHT. CURRENTLY ON 2LPM VIA NC. REMOVED OXYGEN AT ONE POINT AND OXYGEN SATURATION DROPPED TO 85%
[2021-04-28] MEDS ORDERED: AZIT250 PO (11:07)
[2021-04-28] MEDS ORDERED: GUAI600T33 PO (11:08)
[2021-04-28] MEDS ORDERED: PRED20 PO (11:09)
[2021-04-28] MEDS ORDERED: VISBIOME 112.51 EACH PO (11:11)
[2021-04-28] MEDS ORDERED: VITAMIN D5000 UNIT PO (11:12)
[2021-04-28] MEDS ORDERED: AMOCLA875 PO (11:13)
[2021-04-28] MEDS ORDERED: ASPI81CH PO (11:13)
[2021-04-28] MEDS ORDERED: METO25ER PO (11:15)
--- NOTE | 2021-04-28 14:32 | NUR ---
DISCHARGE UPDATE DISCHARGE PACKET GOVE OVER WITH OT AT 1425. DICHARGE PACKET IN PT BACKPACK AND WITH PT DURING DAPARTURE. PT LEFT UNIT AT 1430 VIA WHEELCHAIR AND ON RA. PT BELONGINS BAGGED AND WITH PT FOR DISCHARGE.
--- NOTE | 2021-04-28 14:37 | NUR ---
UPDATE PT WAS SEEN EXITING ROOM AT ABOUT 1315 BY ANOTHER RN ON FLOOR. PT WAS ASKED TO RETURN TO ROOM AND WAS INFORMED THAT DISCHARGE PAPERS WERE BEING PROCESSED. THIS RN ENTERED PT ROOM AND EXPLAINED THAT PT SHOULD WAIT FOR TO ARRIVE BEFORE DISCHARGING PT. PT BECAME AGITATED AND ASKED "DO YOU KNOW HOW MANY TIMES I HAVE BEEN DISCHARGED FROM A HOSPITAL?" THIS RN TRIED TO EXPLAIN TO PT THAT HAVING THE PRESENT WOULD HAVE AN EXTRA SET OF EARS ON THE DISCHARGE INFORMATION. PT STATED "HE IS NOT GOING TO LISTEN TO ANY OF THAT, HE IS TIRED FROM WORKING ALL DAY." PT THEN STATED "YOU GUYS ALWAYS TELL ME THAT I HAVE TO WAIT AND I DON'T." THIS RN ASKED PT IF I COULD GET HER SOME WATER FOR DISTRACTION, PT AGREED AND ASKED FOR A WATER CUP THAT SHE COULD TAKE HOME.
--- NOTE | 2021-05-01 09:56 | NUR ---
Received referral from nurse ambulatory care nurse (Lara Maciel) on 04/28/2021. Patient discharged 04/28/2021 with orders for home health and elected [facility]. Contacted patient today- 05/01/2021 via number provided on demographic sheet to further discuss the above. Patient is agreeable to the above. Discussed homebound status definition with patient. Patient verbalized understanding. Discussed what home health is vs what it is not (in home caregivers/housekeeping). Patient verbalized understanding. Discussed the next steps in the process of an initial assessment to determine frequency of visits. Again patient verbalized understanding. Offered a chance for patient to ask questions regarding the above of which there were none. Gathered all supporting documentation for referral (face sheet, face to face, med list, H&P, discharge summary, and most recent PT assessment) and sent to [facility] for review. No further interventions required. Mita Sales Referral Liaison
== END 2021-04-28 14:30 | disposition home or self-care (01) | DRG 193 ==
LOC: ER 11:33 → PCU 14:19
PROVIDERS: Internal Medicine; Physician Assistant; ADMIT Internal Medicine
DX: J12.1 Respiratory syncytial virus pneumonia (principal); J96.01 Acute respiratory failure with hypoxia; J44.1 Chronic obstructive pulmonary disease with (acute) exacerbation; Z20.822 Contact with and (suspected) exposure to COVID-19; E87.6 Hypokalemia; G40.909 Epilepsy, unspecified, not intractable, without status epilepticus; E11.42 Type 2 diabetes mellitus with diabetic polyneuropathy; M10.9 Gout, unspecified; F32.A Depression, unspecified; M79.7 Fibromyalgia; G89.4 Chronic pain syndrome; F17.210 Nicotine dependence, cigarettes, uncomplicated; Z79.4 Long term (current) use of insulin; Z79.899 Other long term (current) drug therapy; Z90.49 Acquired absence of other specified parts of digestive tract; Z98.890 Other specified postprocedural states
CPT/HCPCS: 0241U; 36415; 36600; 71045; 80048; 80053; 81001; 82803; 82947; 83605; 83735; 83880; 84145; 84484; 85025; 85027; 87040; 87070; 87086; 87205; 93005; 93010; 94640; 94664; 94760; 94761; 96374; 96375; 99285-25; A9270; J0456; J0696; J1650; J1815; J1940; J3475; J3480; J7030; J7050; J7512